=== PATIENT | female | born 1950 | race Caucasian/White ===

== ENCOUNTER 2018-04-22 22:52 | Inpatient (IN) ==
--- NOTE | 2018-04-22 23:09 | Emergency Department Note ---
Disposition Clinical Impression: Dehydration, Hyperammonemia, Hyponatremia, Delirium due to general medical condition Disposition: Admitted As Inpatient Condition: Fair Altered Mental Status HPI - General Chief Complaint: ED Altered Mental Status Stated Complaint: confusion Time Seen by Provider: 04/22/18 22:56 Source: patient Mode of arrival: ambulatory Limitations: no limitations Nursing Notes Reviewed: Yes Vital Signs Reviewed: Yes - History of Present Illness HPI Narrative: Patient has a history of elevated ammonia levels and is not taking her medication as instructed gives her diarrhea symptoms result she is possibly every 3 days insisted a smaller dose daily as result patient had increasing confusion which started over the past week he can have family subsequently noted in the past 24 she has been significantly patient herself family states that the complaints other than when she takes lactulose does diarrhea they are concerned because the she is dehydrated the Push fluids on her but she does not she is had no recent cough cold or flulike symptoms diarrhea melena hematochezia hematemesis numbness tingling is recently weight loss all systems have been reviewed and are otherwise negative MD complaint: altered mental status, confusion Onset (ago): day(s) Timing confirmed by: family member Pain Severity: none Consistency of Symptoms: waxing and waning Context: history of similar presentation, liver disease Associated symptoms: Denies: chest pain, cough, diaphoresis, fever, chills, headaches, loss of appetite, malaise, nausea/vomiting, rash, seizure, shortness of breath, syncope, weakness, foul smelling urine, difficulty walking, diarrhea, incontinence - Related Data Home Medications Medication Instructions Recorded Confirmed Esomeprazole Magnesium [Nexium] 40 mg PO DAILY 09/07/17 04/22/18 Levothyroxine [Synthroid] 50 mcg PO 0630 09/07/17 04/22/18 Metformin HCl [Glucophage] 1,000 mg PO DAILY 09/07/17 04/22/18 Nadolol 20 mg PO DAILY 09/07/17 04/22/18 glipiZIDE [Glipizide ER] 10 mg PO DAILY 09/07/17 04/22/18 Lactulose 20 gm PO DAILY 04/22/18 04/22/18 Allergies Allergy/AdvReac Type Severity Reaction Status Date / Time Penicillins Allergy Hives Verified 09/07/17 19:15 propoxyphene [From Darvon] Allergy Hives Verified 07/17/18 19:15 All systems ED: reviewed and negative except as stated. Review of Systems: As Per HPI Constitutional: Reports: weakness. Denies: fever, chills Eyes: Denies: eye pain, eye discharge ENT ED: Denies: ear pain, throat pain, dental pain Cardiovascular: Denies: chest pain, palpitations, dyspnea on exertion Respiratory: Denies: cough, dyspnea, wheezes Gastrointestinal: Denies: abdominal pain, nausea, vomiting Genitourinary: Denies: urgency, dysuria, frequency Musculoskeletal: Denies: back pain, neck pain, joint swelling Integumentary: Denies: rash, abrasion, lesions Neurological: Reports: confusion. Denies: headache, weakness, numbness Psychiatric: Denies: anxiety, depression, suicidal thoughts Endocrine: Denies: fatigue, heat or cold intolerance Hematological/Lymphatic: Denies: easy bleeding, easy bruising Allergic/Immunologic: Denies: facial swelling, urticaria Past Medical History - Past Medical History Attestation: Yes The following information was validated with the patient. Source: patient, old records reviewed, nursing notes reviewed Medical history: Reports: cirrhosis, diabetes Psychiatric history: Reports: no psych history - Social History Smoking Status: Never smoker Smokeless Tobacco Status: No Alcohol use: Reports: none Drug use: Reports: none Physical Exam - General Limitations: no limitations General appearance: alert, in no apparent distress, other (confused) - Head Head exam: atraumatic, normocephalic, normal inspection - Eye Eye exam: Present: normal appearance, PERRL, EOMI - ENT ENT exam: normal exam, normal oropharynx, mucous membranes moist, TM's normal bilaterally, normal external ear exam - Neck Neck exam: Present: normal inspection, full ROM, trachea midline - Chest Chest inspection: Present: normal inspection, symmetric chest wall rise - Respiratory Respiratory exam: Present: normal lung sounds bilaterally - Cardiovascular Cardiovascular exam: Present: regular rate, normal rhythm, normal heart sounds - Abdominal Exam Abdominal exam: Present: soft, Non-Tender, distention, normal bowel sounds. Absent: mass, pulsatile mass - Extremities Exam Extremities exam: Present: normal inspection, full ROM, normal capillary refill. Absent: tenderness, pedal edema, joint swelling, calf tenderness - Expanded Upper Extremity Exam Shoulder exam: Present: normal inspection, full ROM Arm exam: Present: normal inspection, full ROM Elbow exam: Present: normal inspection, full ROM Forearm/Wrist exam: Present: normal inspection, full ROM Hand exam: Present: normal inspection, full ROM Vascular exam: Normal: capillary refill, radial pulse - Expanded Lower Extremity Exam Hip/Pelvis exam: Present: normal inspection, full ROM Upper leg exam: Present: normal inspection, full ROM Knee exam: Present: normal inspection, full ROM Lower leg exam: Present: normal inspection, full ROM Ankle exam: Present: normal inspection, full ROM Foot/toe exam: Present: normal inspection, full ROM Neurovascular/Tendon exam: Present: normal capillary refill, normal fine/light touch. Absent: motor deficit, sensory deficit, tendon deficit Gait: observed and normal - Back Exam Back exam: Present: normal inspection, full ROM. Absent: muscle spasm - Neurological Exam Neurological exam: Present: alert, oriented X3, CN II-XII intact, normal gait - Psychiatric Psychiatric exam: Present: normal affect, normal mood - Skin Skin exam: Present: warm, dry, intact, normal color Course Course Narrative: Patient seen and examined laboratory data was done spoke with family because the patient had some confusion she needed to be admitted comfortable with the plan patient though did not feel that she was confused that she had trouble answering questions as result she is admitted to [facility] surg Vital Signs Temperature 98.1 F 04/22/18 22:52 Pulse Rate 91 04/22/18 22:52 Respiratory Rate 18 04/22/18 22:52 Blood Pressure 128/77 04/22/18 22:52 O2 Sat by Pulse Oximetry 94 04/22/18 22:52 Temperature 99.4 F 04/23/18 05:20 Pulse Rate 89 04/23/18 03:56 Respiratory Rate 16 04/23/18 03:56 Blood Pressure 116/68 04/23/18 03:56 O2 Sat by Pulse Oximetry 92 04/23/18 03:56 Oxygen Delivery Oxygen Delivery Room Air Altered Mental Status - Differential Diagnosis Likely: altered mental status, delirium, dementia, hyponatremia, subarachnoid hemorrhage, sepsis - Medical Records Medical records reviewed: Yes I reviewed the patient's medical records. - Lab Data Lab results reviewed: Yes I reviewed the patient's lab results. Result diagrams: 04/22/18 23:25 04/22/18 23:25 Lab Results 04/22/18 04/22/18 04/22/18 Range/Units 00:04 23:25 23:25 WBC 5.0 (4.3-11.1) K/mcL RBC 4.01 (3.82-4.97) M/mcL Hgb 10.7 L (11.5-15.4) g/dL Hct 33.4 L (35.3-44.9) % MCV 83.3 (83.0-100.0) fL MCH 26.7 L (28.0-33.3) pg MCHC 32.0 (31.6-35.5) g/dL RDW 18.0 H (11.5-14.5) % Plt Count 97 L (140-400) K/mcL MPV 10.3 (9.4-12.4) fL Immature Gran % 0.4 (0-4) % Seg Neutrophils % 71.6 % Lymphocytes % 8.0 % Monocytes % 17.6 % Eosinophils % 1.6 % Basophils % 0.8 % Neutrophils # 3.6 (1.6-8.9) K/mcL Lymphocytes # 0.4 L (0.6-4.6) K/mcL Monocytes # 0.9 (0.0-1.3) K/mcL Eosinophils # 0.1 (0.0-0.6) K/mcL Basophils # 0.0 (0.0-0.2) K/mcL PT 14.3 H (9.4-12.1) Seconds INR 1.3 APTT 31.8 (26.0-36.0) Seconds Sodium (136-145) mEq/L Potassium (3.5-5.1) mEq/L Chloride (98-107) mEq/L Carbon Dioxide (23-29) mEq/L BUN (8-23) mg/dL Creatinine (0.60-1.20) mg/dL Est GFR ( Amer) (> 60) Est GFR (Non-Af Amer) (> 60) BUN/Creatinine Ratio (6-26) Glucose (70-105) mg/dL Calculated Osmolality (280-300) Calcium (8.6-10.3) mg/dL Total Bilirubin (0.3-1.0) mg/dL AST (13-39) Units/L ALT (7-52) Units/L Alkaline Phosphatase (34-104) Units/L Ammonia (16-53) mcmol/L Troponin I (< 0.04) ng/mL Serum Total Protein (6.4-8.9) g/dL Albumin (3.5-5.7) g/dL Globulin (2.4-3.5) g/dL Albumin/Globulin Ratio (1.1-2.2) TSH (0.340-5.600) mcIU/mL Urine Color Yellow (Yellow) Urine Clarity Clear (Clear) Urine pH 5.5 (5.0-8.0) pH Units Ur Specific [place] >= 1.030 H (1.010-1.025) Urine Protein Trace (Neg-Trace) mg/dL Urine Glucose (UA) Normal (Normal) mg/dL Urine Ketones 40 H (Negative) mg/dL Urine Blood Large H (Negative) Urine Nitrite Negative (Negative) Urine Bilirubin Small H (Negative) Urine Urobilinogen Normal (Normal) mg/dL Ur Leukocyte Esterase Negative (Negative) Urine Microscopic RBC 15-30 H (0-3) per hpf Urine Microscopic WBC 0-3 (0-3) per hpf Ur Squamous Epith Cells Few (None-Few) per lpf Ur Culture Indicated? NO (NO) 04/22/18 04/22/18 Range/Units 23:25 23:25 WBC (4.3-11.1) K/mcL RBC (3.82-4.97) M/mcL Hgb (11.5-15.4) g/dL Hct (35.3-44.9) % MCV (83.0-100.0) fL MCH (28.0-33.3) pg MCHC (31.6-35.5) g/dL RDW (11.5-14.5) % Plt Count (140-400) K/mcL MPV (9.4-12.4) fL Immature Gran % (0-4) % Seg Neutrophils % % Lymphocytes % % Monocytes % % Eosinophils % % Basophils % % Neutrophils # (1.6-8.9) K/mcL Lymphocytes # (0.6-4.6) K/mcL Monocytes # (0.0-1.3) K/mcL Eosinophils # (0.0-0.6) K/mcL Basophils # (0.0-0.2) K/mcL PT (9.4-12.1) Seconds INR APTT (26.0-36.0) Seconds Sodium 128 L (136-145) mEq/L Potassium 4.4 (3.5-5.1) mEq/L Chloride 94 L (98-107) mEq/L Carbon Dioxide 22 L (23-29) mEq/L BUN 10 (8-23) mg/dL Creatinine 0.54 L (0.60-1.20) mg/dL Est GFR ( Amer) > 60 (> 60) Est GFR (Non-Af Amer) > 60 (> 60) BUN/Creatinine Ratio 19 (6-26) Glucose 135 H (70-105) mg/dL Calculated Osmolality 267 L (280-300) Calcium 9.2 (8.6-10.3) mg/dL Total Bilirubin 2.2 H (0.3-1.0) mg/dL AST 67 H (13-39) Units/L ALT 44 (7-52) Units/L Alkaline Phosphatase 74 (34-104) Units/L Ammonia 73 H (16-53) mcmol/L Troponin I < 0.03 (< 0.04) ng/mL Serum Total Protein 7.0 (6.4-8.9) g/dL Albumin 3.3 L (3.5-5.7) g/dL Globulin 3.7 H (2.4-3.5) g/dL Albumin/Globulin Ratio 0.9 L (1.1-2.2) TSH 1.443 (0.340-5.600) mcIU/mL Urine Color (Yellow) Urine Clarity (Clear) Urine pH (5.0-8.0) pH Units Ur Specific [place] (1.010-1.025) Urine Protein (Neg-Trace) mg/dL Urine Glucose (UA) (Normal) mg/dL Urine Ketones (Negative) mg/dL Urine Blood (Negative) Urine Nitrite (Negative) Urine Bilirubin (Negative) Urine Urobilinogen (Normal) mg/dL Ur Leukocyte Esterase (Negative) Urine Microscopic RBC (0-3) per hpf Urine Microscopic WBC (0-3) per hpf Ur Squamous Epith Cells (None-Few) per lpf Ur Culture Indicated? (NO) - Radiology Data Radiology results reviewed: Yes I reviewed the patient's radiology results. ITS Impressions Chest X-Ray 04/22/18 22:57 IMPRESSION: No acute cardiopulmonary findings. Moderate-sized hiatus hernia. Left basilar atelectasis. D/ / Edu Livingston / Edu Livingston Interpreting Provider: Edu Livingston Head CT 04/22/18 22:57 IMPRESSION: No acute intracranial abnormality. Unchanged focal right frontal encephalomalacia. D/ / Edu Livingston / Edu Livingston Interpreting Provider: Edu Livingston - EKG Data EKG attestation: Yes I reviewed and interpreted this EKG. EKG results narrative: Heart rate 85 RI 158 QRS 87 QT 390 to access 6 sinus rhythm TPA Checklist - LKW: 3-4.5 hrs Add. Warnings/Precautions Patient/family understanding: The patient/family members have been counseled and understood the risk, benefit, and alternatives of treatment. Critical Care Time Critical Care Time: Yes Total Critical Care Time: 35 Attestation: Hypomobility clinically significant life-threatening deterioration is patient's condition as result the patient having elevated ammonia dehydration and electrolyte imbalance
[2018-04-22 23:30] LABS: Basophils % 0.8 %; Eosinophils # 0.1 K/mcL (0.0-0.6); Eosinophils % 1.6 %; Hematocrit 33.4 % (35.3-44.9); Hemoglobin 10.7 g/dL (11.5-15.4); Immature Granulocytes % 0.4 % (0-4); Lymphocytes # 0.4 K/mcL (0.6-4.6); Mean Corpuscular Hemoglobin 26.7 pg (28.0-33.3); Mean Corpuscular Volume 83.3 fL (83.0-100.0); Mean Platelet Volume 10.3 fL (9.4-12.4); Monocytes # 0.9 K/mcL (0.0-1.3); Monocytes % 17.6 %; Neutrophils # 3.6 K/mcL (1.6-8.9); Red Blood Count 4.01 M/mcL (3.82-4.97); Segmented Neutrophils % 71.6 %
[2018-04-22 23:32] LABS: Platelet Count 97 K/mcL (140-400)
[2018-04-22 23:39] LABS: INR 1.3; Prothrombin Time 14.3 Seconds (9.4-12.1)
[2018-04-22 23:41] LABS: Activated Partial Thrombo Time 31.8 Seconds (26.0-36.0)
[2018-04-22 23:50] LABS: Troponin I < 0.03 ng/mL (< 0.04)
[2018-04-22 23:51] LABS: Alanine Aminotransferase 44 Units/L (7-52); Albumin 3.3 g/dL (3.5-5.7); Albumin/Globulin Ratio 0.9 (1.1-2.2); Alkaline Phosphatase 74 Units/L (34-104); Aspartate Amino Transferase 67 Units/L (13-39); BUN/Creatinine Ratio 19 (6-26); Bilirubin,Total 2.2 mg/dL (0.3-1.0); Blood Urea Nitrogen 10 mg/dL (8-23); Calcium 9.2 mg/dL (8.6-10.3); Carbon Dioxide 22 mEq/L (23-29); Chloride 94 mEq/L (98-107); Globulin 3.7 g/dL (2.4-3.5); Glucose 135 mg/dL (70-105); Osmolality,Calculated 267 (280-300); Potassium 4.4 mEq/L (3.5-5.1); Sodium 128 mEq/L (136-145); eGFR For Non-African Americans > 60 (> 60)
[2018-04-23 00:02] LABS: Bilirubin,Urine Small (Negative); Blood,Urine Large (Negative); Clarity,Urine Clear (Clear); Color,Urine Yellow (Yellow); Glucose,Urine (UA) Normal (Normal); Ketones,Urine 40 mg/dL (Negative); Leukocyte Esterase,Urine Negative (Negative); Nitrite,Urine Negative (Negative); PH,Urine 5.5 pH Units (5.0-8.0); Protein,Urine Trace mg/dL (Neg-Trace); Specific Gravity,Urine >= 1.030 (1.010-1.025); Urobilinogen,Urine Normal (Normal)
[2018-04-23 00:03] LABS: Thyroid Stimulating Hormone 1.443 mcIU/mL (0.340-5.600)
[2018-04-23 00:07] LABS: RBC,Urine 15-30 per hpf (0-3); Squamous Epithelial Cell,Urine Few per lpf (None-Few); WBC,Urine 0-3 per hpf (0-3)
[2018-04-23] MEDS ORDERED: Lactulose Oral Soln 20 GM/30 ML UDC PO ONE (00:35)
[2018-04-23] MEDS ORDERED: Naloxone 0.4 MG/ML INJ IVP PRN (01:03)
[2018-04-23] MEDS ORDERED: Ondansetron ODT 4 MG TAB.RAPDIS SL PRN (01:03)
[2018-04-23] MEDS ORDERED: Ibuprofen 400 MG TABLET PO PRN (01:47)
[2018-04-23] MEDS: 0.9 % Sodium Chloride 1,000 ML IVC SCH ×2 (02:00→09:00)
[2018-04-23] MEDS: Levothyroxine 25 MCG TABLET PO SCH (05:59)
[2018-04-23 06:27] LABS: Basophils % 0.8 %; Eosinophils % 0.8 %; Hematocrit 31.2 % (35.3-44.9); Hemoglobin 10.1 g/dL (11.5-15.4); Immature Granulocytes % 0.4 % (0-4); Lymphocytes # 0.3 K/mcL (0.6-4.6); Lymphocytes % 6.7 %; Mean Corpuscular HGB Conc 32.4 g/dL (31.6-35.5); Mean Corpuscular Hemoglobin 26.8 pg (28.0-33.3); Mean Corpuscular Volume 82.8 fL (83.0-100.0); Mean Platelet Volume 11.8 fL (9.4-12.4); Monocytes # 0.8 K/mcL (0.0-1.3); Neutrophils # 3.9 K/mcL (1.6-8.9); Red Blood Count 3.77 M/mcL (3.82-4.97); Red Cell Distribution Width 18.1 % (11.5-14.5); Segmented Neutrophils % 76.3 %
[2018-04-23 06:44] LABS: BUN/Creatinine Ratio 20 (6-26); Blood Urea Nitrogen 11 mg/dL (8-23); Calcium 8.8 mg/dL (8.6-10.3); Carbon Dioxide 19 mEq/L (23-29); Chloride 96 mEq/L (98-107); Glucose 176 mg/dL (70-105); Osmolality,Calculated 270 (280-300); Potassium 4.1 mEq/L (3.5-5.1); Sodium 128 mEq/L (136-145); eGFR For Non-African Americans > 60 (> 60)
[2018-04-23 06:59] LABS: Platelet Count 95 K/mcL (140-400)
[2018-04-23] MEDS: *HR* GlipiZIDE XL (24 HR) 10 MG TABLET PO SCH (09:01)
[2018-04-23] MEDS: *HR* Metformin 500 MG TABLET PO SCH ×2 (09:01→21:00)
[2018-04-23] MEDS: Lactulose Oral Soln 20 GM/30 ML UDC PO SCH ×3 (09:01→21:01)
[2018-04-23] MEDS: Acetaminophen 325 MG TABLET PO PRN ×2 (11:18→18:08)
--- NOTE | 2018-04-23 15:15 | Internal Med History&Physical ---
Date of Encounter: 04/23/18 Time of Encounter: 14:35 Assessment and Plan (1) Hepatic encephalopathy Current visit: Yes Status: Acute She will be started on rifaximin. Lactulose will be given as tolerated. (2) Cryptogenic cirrhosis Current visit: Yes Status: Acute Treatment of HE as per above. (3) Microcytic anemia Current visit: Yes Status: Acute Anemia testing will be done in a.m. (4) DM type 2 (diabetes mellitus, type 2) Current visit: Yes Status: Chronic Continue Glucotrol and Glucophage. Check hemoglobin A1c in a.m. 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 (6) Hypothyroidism Current visit: Yes Status: Acute TSH was normal at 1.443 in emergency room. Continue present dose Synthroid. Qualifiers: Hypothyroidism type: unspecified Qualified Code(s): E03.9 - Hypothyroidism, unspecified (7) Hematuria Current visit: Yes Status: Acute Urine culture and sensitivity will be ordered. Qualifiers: Hematuria type: unspecified type Qualified Code(s): R31.9 - Hematuria, unspecified Internal Medicine - H&P: HPI Chief complaint: Cough, confusion Admitted From: Emergency Dept Plans for Post Hospital Care: Home History of present illness: Ms. Bower is a 67 year old female who came to emergency room with history of minimally productive cough over the past 3-4 days with increasing confusion over the past 2 days. There was no vomiting, diarrhea or pain. She was evaluated in emergency room and was found to have elevated ammonia level, microcytic anemia, and microscopic hematuria. She was admitted to [facility] floor for ongoing care needs. Most of the history is supplied the patient's . She was diagnosed with elevated ammonia felt to be due to cirrhosis approximately 2012. No etiology for the cirrhosis has been identified. She follows with a course instructor at [employer] on a regular basis. She had esophageal varices diagnosed 2012 with treatment and is maintained on nadolol. Her most recent EGD was December 2017. She takes lactulose 2-3 doses per week but has resisted increasing the dose due to severe diarrhea. No oral antibiotic agent such as neomycin or rifaximin have been tried. Most recent colonoscopy was approximately 2 years ago. There is no known disorders of her gallbladder or exocrine pancreas. Past Med Surg Social Fam HX - Past Medical History Medical history: cirrhosis, diabetes Psychiatric history: no psych history - Social History Smoking Status: Never smoker Smokeless Tobacco Status: No Alcohol use: none Drug use: none Internal Medicine - H&P: Meds Esomeprazole Magnesium [Nexium] 40 mg PO DAILY 09/07/17 [History] Levothyroxine [Synthroid] 50 mcg PO 0630 09/07/17 [History] Metformin HCl [Glucophage] 1,000 mg PO DAILY 09/07/17 [History] Nadolol 20 mg PO DAILY 09/07/17 [History] glipiZIDE [Glipizide ER] 10 mg PO DAILY 09/07/17 [History] Lactulose 20 gm PO DAILY 04/22/18 [History] Allergy/AdvReac Type Severity Reaction Status Date / Time Penicillins Allergy Hives Verified 09/07/17 19:15 propoxyphene [From Darvon] Allergy Hives Verified 09/07/17 19:15 All Systems PM: A 10-system review of systems was performed and is negative for pertinent findings except as documented above in the HPI. Review of systems: Gen.: Her weight has minimally increased in the past year Cardiovascular: She has no known hypertension heart failure angina DVT or pulmonary embolus. Echocardiogram 05/22/2016 showed LVEF 65% with no significant valvular dysfunction seen. Respiratory: She is a lifelong nonsmoker and has no known chronic lung disease GI: As per history of present illness : No history of hematuria dysuria or kidney stones. She does not have frequent UTIs Neurologic: She has had hepatic encephalopathy with increased lethargy intermittently. She has not had large distribution strokes or seizures Endocrine: She was diagnosed with DM 2 approximately 2005. She has hypothyroidism but denies hyperlipidemia Hematology/oncology: She has had anemia in the past and was told she had low B12 level. She denies internal malignancies or other blood disorders. Psychiatric: She has occasional insomnia and feels depressed at times. She denies anxiety or other mental health diagnoses. [place] skeletal: She has DJD but denies gout or other bone joint or muscle disorders. - Constitutional Vitals: Temp Pulse Resp BP Pulse Ox 100.0 F H 80 16 109/68 93 04/23/18 15:04 04/23/18 15:04 04/23/18 15:04 04/23/18 15:04 04/23/18 15:04 Exam: Gen.: She is a well-developed well-nourished female resting comfortably in bed. She was asleep during initial part of the visit but awakened and answered a few questions appropriately. HEENT: Head is atraumatic and normocephalic. Eyes: EOMI. There is no scleral icterus. Mouth: Mucosa is moist. Neck: Supple and nontender. There is no thyromegaly or adenopathy noted. Heart: Regular without murmurs gallops or ectopics Lungs: No wheezes or crackles are heard. Abdomen: Soft and nontender. No masses or guarding are noted. Extremities: There is no cyanosis edema or clubbing noted. Dorsalis pedis and posterior tibial pulses are trace to 1+ palpable bilaterally. Neurologic: Mental status: She is talkative and a good historian. Cranial nerves: Smile is symmetric. Forehead wrinkles bilaterally. Tongue protrudes midline. EOMI. Motor: There is no pronator drift. Cerebellar: Finger to nose is intact bilaterally. Skin: Warm and dry Internal Med - H&P Results - Labs CBC & Chem 7: 04/23/18 05:41 04/23/18 05:41 Labs: Short CBC 04/22/18 04/23/18 Range/Units 23:25 05:41 WBC 5.0 5.1 (4.3-11.1) K/mcL Hgb 10.7 L 10.1 L (11.5-15.4) g/dL Hct 33.4 L 31.2 L (35.3-44.9) % Plt Count 97 L 95 L (140-400) K/mcL Neutrophils # 3.6 3.9 (1.6-8.9) K/mcL BMP 04/22/18 04/23/18 23:25 05:41 Sodium 128 L 128 L Potassium 4.4 4.1 Chloride 94 L 96 L Carbon Dioxide 22 L 19 L BUN 10 11 Creatinine 0.54 L 0.54 L Glucose 135 H 176 H Calcium 9.2 8.8 Cardiac Enzymes 04/22/18 Range/Units 23:25 Troponin I < 0.03 (< 0.04) ng/mL Liver Function 04/22/18 Range/Units 23:25 Total Bilirubin 2.2 H (0.3-1.0) mg/dL AST 67 H (13-39) Units/L ALT 44 (7-52) Units/L Alkaline Phosphatase 74 (34-104) Units/L Albumin 3.3 L (3.5-5.7) g/dL Urine 04/22/18 Range/Units 00:04 Urine Color Yellow (Yellow) Urine Clarity Clear (Clear) Urine pH 5.5 (5.0-8.0) pH Units Ur Specific [place] >= 1.030 H (1.010-1.025) Urine Protein Trace (Neg-Trace) mg/dL Urine Glucose (UA) Normal (Normal) mg/dL - Impressions ITS Impressions Chest X-Ray 04/22/18 22:57 IMPRESSION: No acute cardiopulmonary findings. Moderate-sized hiatus hernia. Left basilar atelectasis. D/ / Edu Livingston / Edu Livingston Interpreting Provider: Edu Livingston Head CT 04/22/18 22:57 IMPRESSION: No acute intracranial abnormality. Unchanged focal right frontal encephalomalacia. D/ / Edu Livingston / Edu Livingston Interpreting Provider: Edu Livingston
[2018-04-23] MEDS ORDERED: D5% in Water 1,000 ML IVC PRN (16:20)
[2018-04-23] MEDS ORDERED: Dextrose Gel 15 GM/37.5 ML TUBE PO PRN ×2 (16:20)
[2018-04-23] MEDS ORDERED: Dextrose 4 GM Chewable Tablets PO PRN ×2 (16:20)
[2018-04-23] MEDS ORDERED: *HR* Dextrose 50 % in Water (Syg) 50 ML SYRINGE IVP PRN (16:20)
[2018-04-23] MEDS: Insulin LISPRO 300 UNITS/3 ML VIAL SQ SCH ×2 (17:01→21:00)
[2018-04-23] MEDS: cefTRIAXone 1,000 MG in 0.9 % Sodium Chloride Mini Bag 100 ML IVPB SCH (19:51)
[2018-04-23] MEDS: Azithromycin 500 MG in D5% in Water 250 ML IVPB SCH (20:56)
[2018-04-23] MEDS: Ibuprofen 600 MG TABLET PO PRN (21:06)
[2018-04-23 21:36] LABS: Bilirubin,Urine Negative (Negative); Blood,Urine Negative (Negative); Clarity,Urine Clear (Clear); Color,Urine Yellow (Yellow); Glucose,Urine (UA) 500 mg/dL (Normal); Ketones,Urine Trace mg/dL (Negative); Leukocyte Esterase,Urine Negative (Negative); Nitrite,Urine Negative (Negative); Protein,Urine Negative (Neg-Trace); Specific Gravity,Urine 1.025 (1.010-1.025); Urobilinogen,Urine Normal (Normal)
[2018-04-24 06:33] LABS: Alanine Aminotransferase 43 Units/L (7-52); Albumin 2.9 g/dL (3.5-5.7); Albumin/Globulin Ratio 0.8 (1.1-2.2); Alkaline Phosphatase 62 Units/L (34-104); Aspartate Amino Transferase 72 Units/L (13-39); BUN/Creatinine Ratio 15 (6-26); Basophils % 0.4 %; Bilirubin,Direct 0.6 mg/dL (0.0-0.2); Bilirubin,Indirect 1.1 mg/dL (0.0-1.2); Bilirubin,Total 1.7 mg/dL (0.3-1.0); Blood Urea Nitrogen 13 mg/dL (8-23); Calcium 8.6 mg/dL (8.6-10.3); Carbon Dioxide 24 mEq/L (23-29); Chloride 98 mEq/L (98-107); Eosinophils % 0.2 %; Globulin 3.5 g/dL (2.4-3.5); Glucose 141 mg/dL (70-105); Hematocrit 31.2 % (35.3-44.9); Hemoglobin 9.9 g/dL (11.5-15.4); Immature Granulocytes % 0.4 % (0-4); Lymphocytes # 0.4 K/mcL (0.6-4.6); Lymphocytes % 6.9 %; Mean Corpuscular HGB Conc 31.7 g/dL (31.6-35.5); Mean Corpuscular Hemoglobin 26.8 pg (28.0-33.3); Mean Corpuscular Volume 84.3 fL (83.0-100.0); Mean Platelet Volume 11.6 fL (9.4-12.4); Monocytes # 0.5 K/mcL (0.0-1.3); Monocytes % 9.7 %; Neutrophils # 4.4 K/mcL (1.6-8.9); Osmolality,Calculated 272 (280-300); Platelet Count 59 K/mcL (140-400); Potassium 3.9 mEq/L (3.5-5.1); Red Cell Distribution Width 18.6 % (11.5-14.5); Segmented Neutrophils % 82.4 %; Sodium 130 mEq/L (136-145); Total Protein 6.4 g/dL (6.4-8.9); eGFR For Non-African Americans > 60 (> 60)
[2018-04-24 06:52] LABS: Acinetobacter baumannii by PCR Not Detected (Not Detect); Candida albicans by PCR Not Detected (Not Detect); Candida glabrata by PCR Not Detected (Not Detect); Candida krusei by PCR Not Detected (Not Detect); Candida parapsilosis by PCR Not Detected (Not Detect); Candida tropicalis by PCR Not Detected (Not Detect); Enterobacter cloacae Cmplx PCR Not Detected (Not Detect); Enterobacteriaceae by PCR Not Detected (Not Detect); Enterococcus by PCR Not Detected (Not Detect); Escherichia coli by PCR Not Detected (Not Detect); Klebsiella oxytoca by PCR Not Detected (Not Detect); Klebsiella pneumoniae by PCR Not Detected (Not Detect); Proteus by PCR Not Detected (Not Detect); Pseudomonas aeruginosa by PCR Not Detected (Not Detect); Serratia marcescens by PCR Not Detected (Not Detect); Staphylococcus aureus by PCR Not Detected (Not Detect); Staphylococcus by PCR DETECTED (Not Detect); Streptococcus agalactiae(B)PCR Not Detected (Not Detect); Streptococcus by PCR Not Detected (Not Detect); Streptococcus pneumoniae PCR Not Detected (Not Detect); Streptococcus pyogenes (A) PCR Not Detected (Not Detect)
[2018-04-24] MEDS: Levothyroxine 25 MCG TABLET PO SCH (06:56)
[2018-04-24] MEDS: Lactulose Oral Soln 20 GM/30 ML UDC PO SCH ×2 (08:36→21:16)
[2018-04-24] MEDS: Lactobacillus 1 EACH CAP.SPRINK PO SCH (08:42)
[2018-04-24] MEDS: *HR* GlipiZIDE XL (24 HR) 10 MG TABLET PO SCH (08:42)
[2018-04-24] MEDS: Insulin LISPRO 300 UNITS/3 ML VIAL SQ SCH ×4 (08:43→21:17)
[2018-04-24] MEDS: *HR* Metformin 500 MG TABLET PO SCH ×2 (08:44→21:14)
[2018-04-24] MEDS: Acetaminophen 325 MG TABLET PO PRN (08:44)
--- NOTE | 2018-04-24 10:56 | Internal Med Progress Note ---
Date of Encounter: 04/24/18 Time of Encounter: 10:45 - Assessment and plan (1) Hepatic encephalopathy Current Visit: Yes Status: Acute Assessment and plan: April 24. Improved. Continue rifaximin and treatment for bacteremia. (2) Cryptogenic cirrhosis Current Visit: Yes Status: Acute Assessment and plan: April 24. As above (3) Microcytic anemia Current Visit: Yes Status: Acute Assessment and plan: April 24. Anemia testing pending. Stool was heme positive but she has known esophageal and gastric varices. Hemoglobin minimally decreased at 9.9. (4) DM type 2 (diabetes mellitus, type 2) Current Visit: Yes Status: Chronic Assessment and plan: April 24. Hemoglobin A1c pending. Continue Glucotrol and Glucophage and Accu- Cheks with SSI. Qualifiers: Diabetes mellitus half-way insulin use: without dedicated intermodal truck driver use Diabetes mellitus complication status: without complication Qualified Code(s): E11.9 - Type 2 diabetes mellitus without complications (5) Hyponatremia Current Visit: Yes Status: Acute Assessment and plan: April 24. Sodium improved to 130. Continue present Rx. (6) Hypothyroidism Current Visit: Yes Status: Acute Assessment and plan: April 24. TSH normal in the ER at 1.443. Continue present dose Synthroid. Qualifiers: Hypothyroidism type: unspecified Qualified Code(s): E03.9 - Hypothyroidism, unspecified (7) Hematuria Current Visit: Yes Status: Acute Assessment and plan: April 24. Repeat UA yesterday showed no hematuria. Continue to monitor. Qualifiers: Hematuria type: unspecified type Qualified Code(s): R31.9 - Hematuria, unsp ecified (8) Staphylococcus aureus bacteremia Current Visit: Yes Status: Acute Assessment and plan: April 24. A blood culture in ER shows MSSA on preliminary report. She has been started on Rocephin and Zithromax. These will be continued with final culture report pending. - Subjective Interval history: April 24. She has no new complaints and feels better. She specifically denies pain or dyspnea. - Constitutional Vitals: Temp Pulse Resp BP Pulse Ox 98.9 F 80 16 102/68 93 04/24/18 10:06 04/24/18 10:06 04/24/18 10:06 04/24/18 10:06 04/24/18 10:06 Exam: She is resting comfortably in bed and appears in no acute distress. She is more awake and alert than yesterday. I reviewed her medications and lab results. Internal Medicine: Result - Labs CBC & Chem 7: 04/24/18 05:58 04/24/18 05:58 Labs: Short CBC 04/24/18 Range/Units 05:58 WBC 5.3 (4.3-11.1) K/mcL Hgb 9.9 L (11.5-15.4) g/dL Hct 31.2 L (35.3-44.9) % Plt Count 59 L (140-400) K/mcL Neutrophils # 4.4 (1.6-8.9) K/mcL BMP 04/24/18 05:58 Sodium 130 L Potassium 3.9 Chloride 98 Carbon Dioxide 24 BUN 13 Creatinine 0.84 Glucose 141 H Calcium 8.6 Liver Function 04/24/18 Range/Units 05:58 Total Bilirubin 1.7 H (0.3-1.0) mg/dL Direct Bilirubin 0.6 H (0.0-0.2) mg/dL AST 72 H (13-39) Units/L ALT 43 (7-52) Units/L Alkaline Phosphatase 62 (34-104) Units/L Albumin 2.9 L (3.5-5.7) g/dL Urine 04/23/18 Range/Units 19:00 Urine Color Yellow (Yellow) Urine Clarity Clear (Clear) Urine pH 5.0 (5.0-8.0) pH Units Ur Specific [place] 1.025 (1.010-1.025) Urine Protein Negative (Neg-Trace) mg/dL Urine Glucose (UA) 500 H (Normal) mg/dL - ABG Interpretation ABG results: PT/INR, D-dimer PT 14.3 Seconds (9.4-12.1) H 04/22/18 23:25 - Impressions Impressions Chest CT 04/23/18 18:46 IMPRESSION: Moderate respiratory motion degradation. No definite acute abnormality detected within the chest. Possible mild bronchial wall thickening which raise the possibility of acute and/or chronic bronchitis versus reactive airways disease. Cirrhotic morphology liver, with evidence of portal hypertension, with gastric and gastroesophageal varices. Moderate-sized hiatal hernia. D/ / Leax Ramirez MD / Lexa Ramirez MD Interpreting Provider: Lexa Ramirez MD Consult Discharge Plan - Plan Referrals: Gregorio Reid MD [Primary Care Provider] - 1 week
[2018-04-24 11:30] LABS: % Iron Saturation 3 % (15-50); Iron 14 mcg/dL (50-170); Transferrin 328 mg/dL (203-362)
[2018-04-24 11:49] LABS: Ferritin 38 ng/mL (10-120)
[2018-04-24 11:53] LABS: Folate 12.5 ng/mL (3.0-16.0)
[2018-04-24 14:21] LABS: Estimated Average Glucose 186 mg/dl; Hemoglobin A1C 8.1 %
[2018-04-24] MEDS: cefTRIAXone 1,000 MG in 0.9 % Sodium Chloride Mini Bag 100 ML IVPB SCH (18:24)
[2018-04-24] MEDS: Azithromycin 500 MG in D5% in Water 250 ML IVPB SCH (19:04)
[2018-04-25] MEDS: Levothyroxine 25 MCG TABLET PO SCH (06:06)
[2018-04-25] MEDS: Insulin LISPRO 300 UNITS/3 ML VIAL SQ SCH ×4 (08:46→21:55)
[2018-04-25] MEDS: *HR* Metformin 500 MG TABLET PO SCH ×2 (08:47→21:53)
[2018-04-25] MEDS: *HR* GlipiZIDE XL (24 HR) 10 MG TABLET PO SCH (08:47)
[2018-04-25] MEDS: Lactulose Oral Soln 20 GM/30 ML UDC PO SCH ×2 (08:47→21:55)
[2018-04-25] MEDS: Lactobacillus 1 EACH CAP.SPRINK PO SCH (08:47)
[2018-04-25] MEDS ORDERED: Cyanocobalamin (B-12) 1,000 MCG/ML VIAL IM ONE (10:18)
--- NOTE | 2018-04-25 10:22 | Internal Med Progress Note ---
Date of Encounter: 04/25/18 Time of Encounter: 10:15 - Assessment and plan (1) Hepatic encephalopathy Current Visit: Yes Status: Acute Assessment and plan: April 24. Improved. Continue rifaximin and treatment for bacteremia. (2) Cryptogenic cirrhosis Current Visit: Yes Status: Acute Assessment and plan: April 24. As above (3) Microcytic anemia Current Visit: Yes Status: Acute Assessment and plan: April 24. Anemia testing pending. Stool was heme positive but she has known esophageal and gastric varices. Hemoglobin minimally decreased at 9.9. April 25. Anemia testing showed iron 14, transferrin saturation 3%, transferrin 328, ferritin 38, B12 133, and folate 12.5. She will receive iron dextran infusion and a B12 injection. (4) DM type 2 (diabetes mellitus, type 2) Current Visit: Yes Status: Chronic Assessment and plan: April 24. Hemoglobin A1c pending. Continue Glucotrol and Glucophage and Accu- Cheks with SSI. April 25. Hemoglobin A1c 8.1%. Continue Glucotrol and Glucophage and Accu-Cheks with SSI. Qualifiers: Diabetes mellitus intermediate card tender insulin use: without intermediate card tender use Diabetes mellitus complication status: without complication Qualified Code(s): E11.9 - Type 2 diabetes mellitus without complications (5) Hyponatremia Current Visit: Yes Status: Acute Assessment and plan: April 24. Sodium improved to 130. Continue present Rx. April 25. Recheck labs in a.m. (6) Hypothyroidism Current Visit: Yes Status: Acute Assessment and plan: April 24. TSH normal in the ER at 1.443. Continue present dose Synthroid. Qualifiers: Hypothyroidism type: unspecified Qualified Code(s): E03.9 - Hypothyroidism, unspecified (7) Hematuria Current Visit: Yes Status: Acute Assessment and plan: April 24. Repeat UA yesterday showed no hematuria. Continue to monitor. Qualifiers: Hematuria type: unspecified type Qualified Code(s): R31.9 - Hematuria, unspecified (8) Staphylococcus aureus bacteremia Current Visit: Yes Status: Acute Assessment and plan: April 24. A blood culture in ER shows MSSA on preliminary report. She has been started on Rocephin and Zithromax. These will be continued with final culture report pending. April 25. Final blood culture report sensitivity pending. Change antibiotic to IV Ancef. Continue lactobacillus. Anticipate discharge home tomorrow if stable. - Subjective Interval history: April 24. She has no new complaints and feels better. She specifically denies p ain or dyspnea. April 25. She has no new complaints. - Constitutional Vitals: Temp Pulse Resp BP Pulse Ox 99.1 F 100 16 115/65 96 04/25/18 10:12 04/25/18 10:12 04/25/18 10:12 04/25/18 10:12 04/25/18 10:12 Exam: She is resting comfortably in bed and appears in no acute distress. Her affect is cheerful. She is appropriate in conversation. I reviewed her medications and lab results. Internal Medicine: Result - Labs CBC & Chem 7: 04/24/18 05:58 04/24/18 05:58 - ABG Interpretation ABG results: PT/INR, D-dimer PT 14.3 Seconds (9.4-12.1) H 04/22/18 23:25 Consult Discharge Plan - Plan Referrals: Gregorio Reid MD [Primary Care Provider] - 1 week
[2018-04-25] MEDS ORDERED: SODIUM CHLORIDE 0.9% IVPB ONE (13:00)
[2018-04-25] MEDS ORDERED: IRON DEXTRAN COMPLEX IVPB ONE (13:00)
[2018-04-25] MEDS: ceFAZolin 1,000 MG in Water for inj. (sterile) 20 ML 10 ML IVP SCH (18:29)
[2018-04-26] MEDS: ceFAZolin 1,000 MG in Water for inj. (sterile) 20 ML 10 ML IVP SCH ×3 (02:57→16:17)
[2018-04-26] MEDS: Levothyroxine 25 MCG TABLET PO SCH (06:00)
[2018-04-26 06:22] LABS: Basophils % 0.3 %; Eosinophils # 0.1 K/mcL (0.0-0.6); Eosinophils % 3.8 %; Hematocrit 29.5 % (35.3-44.9); Hemoglobin 9.5 g/dL (11.5-15.4); Immature Granulocytes % 0.3 % (0-4); Lymphocytes # 0.5 K/mcL (0.6-4.6); Lymphocytes % 15.8 %; Mean Corpuscular HGB Conc 32.2 g/dL (31.6-35.5); Mean Corpuscular Hemoglobin 27.1 pg (28.0-33.3); Mean Platelet Volume 10.8 fL (9.4-12.4); Monocytes # 0.4 K/mcL (0.0-1.3); Monocytes % 14.8 %; Neutrophils # 1.9 K/mcL (1.6-8.9); Red Blood Count 3.51 M/mcL (3.82-4.97); Red Cell Distribution Width 18.7 % (11.5-14.5)
[2018-04-26 06:44] LABS: Platelet Count 61 K/mcL (140-400)
[2018-04-26 06:59] LABS: Alanine Aminotransferase 32 Units/L (7-52); Albumin 2.7 g/dL (3.5-5.7); Albumin/Globulin Ratio 0.8 (1.1-2.2); Alkaline Phosphatase 72 Units/L (34-104); Aspartate Amino Transferase 51 Units/L (13-39); BUN/Creatinine Ratio 24 (6-26); Bilirubin,Total 0.9 mg/dL (0.3-1.0); Blood Urea Nitrogen 10 mg/dL (8-23); Calcium 8.7 mg/dL (8.6-10.3); Carbon Dioxide 23 mEq/L (23-29); Chloride 100 mEq/L (98-107); Globulin 3.2 g/dL (2.4-3.5); Glucose 91 mg/dL (70-105); Osmolality,Calculated 277 (280-300); Potassium 3.8 mEq/L (3.5-5.1); Sodium 134 mEq/L (136-145); Total Protein 5.9 g/dL (6.4-8.9); eGFR For Non-African Americans > 60 (> 60)
[2018-04-26] MEDS: Lactulose Oral Soln 20 GM/30 ML UDC PO SCH ×2 (07:39→19:39)
[2018-04-26] MEDS: *HR* Metformin 500 MG TABLET PO SCH ×2 (07:40→16:15)
[2018-04-26] MEDS: Lactobacillus 1 EACH CAP.SPRINK PO SCH (07:40)
[2018-04-26] MEDS: *HR* GlipiZIDE XL (24 HR) 10 MG TABLET PO SCH (07:41)
[2018-04-26] MEDS: Insulin LISPRO 300 UNITS/3 ML VIAL SQ SCH ×4 (09:35→19:39)
--- NOTE | 2018-04-26 11:27 | Internal Med Progress Note ---
Date of Encounter: 04/26/18 Time of Encounter: 11:20 - Assessment and plan (1) Hepatic encephalopathy Current Visit: Yes Status: Acute Assessment and plan: April 24. Improved. Continue rifaximin and treatment for bacteremia. (2) Cryptogenic cirrhosis Current Visit: Yes Status: Acute Assessment and plan: April 24. As above (3) Microcytic anemia Current Visit: Yes Status: Acute Assessment and plan: April 24. Anemia testing pending. Stool was heme positive but she has known esophageal and gastric varices. Hemoglobin minimally decreased at 9.9. April 25. Anemia testing showed iron 14, transferrin saturation 3%, transferrin 328, ferritin 38, B12 133, and folate 12.5. She will receive iron dextran infusion and a B12 injection. April 26. Hemoglobin 9.5 today. Continue to monitor. (4) DM type 2 (diabetes mellitus, type 2) Current Visit: Yes Status: Chronic Assessment and plan: April 24. Hemoglobin A1c pending. Continue Glucotrol and Glucophage and Accu- Cheks with SSI. April 25. Hemoglobin A1c 8.1%. Continue Glucotrol and Glucophage and Accu-Cheks with SSI. Qualifiers: Diabetes mellitus moth exterminator insulin use: without custodial use Diabetes mellitus complication status: without complication Qualified Code(s): E11.9 - Type 2 diabetes mellitus without complications (5) Hyponatremia Current Visit: Yes Status: Acute Assessment and plan: April 24. Sodium improved to 130. Continue present Rx. April 25. Recheck labs in a.m. April 26. Sodium improved to 134. Continue present Rx. (6) Hypothyroidism Current Visit: Yes Status: Acute Assessment and plan: April 24. TSH normal in the ER at 1.443. Continue present dose Synthroid. Qualifiers: Hypothyroidism type: unspecified Qualified Code(s): E03.9 - Hypothyroidism, unspecified (7) Hematuria Current Visit: Yes Status: Acute Assessment and plan: April 24. Repeat UA yesterday showed no hematuria. Continue to monitor. Qualifiers: Hematuria type: unspecified type Qualified Code(s): R31.9 - Hematuria, unspecified (8) Bacteremia due to Staphylococcus Current Visit: Yes Status: Acute Assessment and plan: April 26. Final blood culture report shows Staphylococcus capitis. Ancef will be discontinued and she will be started on oral doxycycline. Lactobacillus will be continued. Anticipate discharge tomorrow if stable. (9) Weakness Current Visit: Yes Status: Acute Assessment and plan: April 26. PT and OT evaluations have been done. - Subjective Interval history: April 24. She has no new complaints and feels better. She specifically denies pain or dyspnea. April 25. She has no new complaints. April 26. She has no new complaints. - Constitutional Vitals: Temp Pulse Resp BP Pulse Ox 98.5 F 92 16 111/70 92 04/26/18 06:39 04/26/18 06:39 04/26/18 06:39 04/26/18 06:39 04/26/18 06:39 Exam: She is resting comfortably in bed and appears in no acute distress. Her affect is bright and cheerful. I reviewed her medications and lab results. Internal Medicine: Result - Labs CBC & Chem 7: 04/26/18 05:40 04/26/18 05:40 Labs: Short CBC 04/26/18 Range/Units 05:40 WBC 2.9 L (4.3-11.1) K/mcL Hgb 9.5 L (11.5-15.4) g/dL Hct 29.5 L (35.3-44.9) % Plt Count 61 L (140-400) K/mcL Neutrophils # 1.9 (1.6-8.9) K/mcL BMP 04/26/18 05:40 Sodium 134 L Potassium 3.8 Chloride 100 Carbon Dioxide 23 BUN 10 Creatinine 0.41 L Glucose 91 Calcium 8.7 Liver Function 04/26/18 Range/Units 05:40 Total Bilirubin 0.9 (0.3-1.0) mg/dL AST 51 H (13-39) Units/L ALT 32 (7-52) Units/L Alkaline Phosphatase 72 (34-104) Units/L Albumin 2.7 L (3.5-5.7) g/dL - ABG Interpretation ABG results: PT/INR, D-dimer PT 14.3 Seconds (9.4-12.1) H 04/22/18 23:25 Consult Discharge Plan - Plan Referrals: Gregorio Reid MD [Primary Care Provider] - 1 week
[2018-04-26] MEDS: Ibuprofen 600 MG TABLET PO PRN (19:39)
[2018-04-27] MEDS: ceFAZolin 1,000 MG in Water for inj. (sterile) 20 ML 10 ML IVP SCH ×2 (01:01→08:48)
[2018-04-27] MEDS: Levothyroxine 25 MCG TABLET PO SCH (05:54)
[2018-04-27 07:22] VITALS: BP 106/62
[2018-04-27] MEDS ORDERED: *HR* GlipiZIDE XL (24 HR) 10 MG TABLET PO SCH (08:00)
[2018-04-27] MEDS: *HR* Metformin 500 MG TABLET PO SCH (08:49)
[2018-04-27] MEDS: Insulin LISPRO 300 UNITS/3 ML VIAL SQ SCH (08:49)
[2018-04-27] MEDS: Lactobacillus 1 EACH CAP.SPRINK PO SCH (08:49)
[2018-04-27] MEDS: Lactulose Oral Soln 20 GM/30 ML UDC PO SCH (08:50)
--- NOTE | 2018-04-27 10:02 | Discharge Summary ---
Orders not resulted at time of discharge: Pending orders 04/22/18 23:25 Culture,Blood [BC] Stat 04/23/18 19:47 Culture,Blood [BC] Stat Date of Encounter: 04/27/18 Time of Encounter: 09:53 - Discharge Diagnosis (1) Hepatic encephalopathy Priority: Primary Status: Acute (2) Cryptogenic cirrhosis Priority: Secondary Status: Acute (3) Bacteremia due to Staphylococcus Priority: Secondary Status: Acute (4) Microcytic anemia Priority: Secondary Status: Acute (5) DM type 2 (diabetes mellitus, type 2) Priority: Secondary Status: Chronic Qualifiers: Diabetes mellitus documentation lead insulin use: without documentation lead use Diabetes mellitus complication status: without complication Qualified Code(s): E11.9 - Type 2 diabetes mellitus without complications (6) Hyponatremia Priority: Secondary Status: Acute (7) Hypothyroidism Priority: Secondary Status: Chronic Qualifiers: Hypothyroidism type: unspecified Qualified Code(s): E03.9 - Hypothyroidism, unspecified (8) Hematuria Priority: Secondary Status: Resolved Qualifiers: Hematuria type: unspecified type Qualified Code(s): R31.9 - Hematuria, unspecified (9) Weakness Priority: Secondary Status: Acute Hospital course: Ms. Bower is a 67 year old female who came to emergency room with history of minimally productive cough over the past 3-4 days with increasing confusion over the past 2 days. There was no vomiting, diarrhea or pain. She was evaluated in emergency room and was found to have elevated ammonia level, microcytic anemia, and microscopic hematuria. She was admitted to [facility] for ongoing care needs. Initial orders were written by the emergency room physician. I saw her on April 23 and performed a history and physical. She was started on rifaximin. Lactulose was given as tolerated. She had gradual improvement in her mental status and returned to what I perceived was baseline by day of discharge. Ammonia level decreased from 73 on admission to 63 on day prior to discharge. She will continue with rifaximin and lactulose at discharge. Anemia testing showed iron 14, transferrin saturation 3%, transferrin 3 and 28, ferritin 38, B12 133, and folate 12.5. She was given a B12 injection will continue with oral B12 supplement at discharge. She was given iron dextran infusion. Her PCP can monitor labs. TSH returned normal at 1.443. Sodium level mya to 134 by day prior to discharge. Physical therapy and occupational therapy evaluations were done with ongoing intervention. It was recommended she have a wheeled walker at discharge to assist in ambulation. On April 27 she was stable for discharge home. She will follow with her PCP Dr. Gregorio Reid within 1 week. Home health services will be ordered. - Time Spent with Patient Total time spent providing and/or coordinating discharge services: - Discharge Medications Prescriptions: New Cyanocobalamin (B-12) [Vitamin B12] 1,000 mcg PO DAILY #30 tablet Doxycycline 100 mg PO BID #14 capsule Lactobacillus [Culturelle] 1 each PO DAILY #14 cap.sprink Rifaximin [Xifaxan] 550 mg PO BID #60 tablet Continue Levothyroxine [Synthroid] 50 mcg PO 0630 Nadolol 20 mg PO DAILY Metformin HCl [Glucophage] 1,000 mg PO DAILY glipiZIDE [Glipizide ER] 10 mg PO DAILY Esomeprazole Magnesium [Nexium] 40 mg PO DAILY Lactulose 20 gm PO DAILY Home Medications: Esomeprazole Magnesium [Nexium] 40 mg PO DAILY 09/07/17 [History] Levothyroxine [Synthroid] 50 mcg PO 0630 09/07/17 [History] Metformin HCl [Glucophage] 1,000 mg PO DAILY 09/07/17 [History] Nadolol 20 mg PO DAILY 09/07/17 [History] glipiZIDE [Glipizide ER] 10 mg PO DAILY 09/07/17 [History] Lactulose 20 gm PO DAILY 04/22/18 [History] Cyanocobalamin (B-12) [Vitamin B12] 1,000 mcg PO DAILY #30 tablet 04/27/18 [Rx] Doxycycline 100 mg PO BID #14 capsule 04/27/18 [Rx] Lactobacillus [Culturelle] 1 each PO DAILY #14 cap.sprink 04/27/18 [Rx] Rifaximin [Xifaxan] 550 mg PO BID #60 tablet 04/27/18 [Rx] Allergies/Adverse Reactions: Allergy/AdvReac Type Severity Reaction Status Date / Time Penicillins Allergy Hives Verified 09/07/17 19:15 propoxyphene [From Darvon] Allergy Hives Verified 09/07/17 19:15 Date of admission: 04/24/18 18:06 Primary care physician: Gregorio Reid MD Consults: 04/25/18 15:34 Consult to Occupational Therapy [CONS] Routine Comment: Evaluate, develop and implement POC Reason for Consult: Evaluate, develop and implement POC Does patient have active BEDREST order?: No Is patient medically & hemodynamically stable?: Yes Patient assessed for mobility or mobilized this visit?: Yes Consult to Physical Therapy [CONS] Routine Comment: Evaluate, develop and implement POC Reason for Consult: Evaluate, develop and implement POC Does patient have active BEDREST order?: No Is patient medically & hemodynamically stable?: Yes Patient assessed for mobility or mobilized this visit?: Yes - Constitutional Vitals: Temp Pulse Resp BP Pulse Ox 98.4 F 82 16 106/62 91 04/27/18 07:17 04/27/18 07:17 04/27/18 07:17 04/27/18 07:17 04/27/18 07:17 - Patient Status Disposition: Home Health Service Condition: Fair - Discharge Instructions Follow Up With: Gregorio Reid MD [Primary Care Provider] - 1 week - Diet and Activity Activity: as per physical therapy, resume usual activities as tolerated Diet: advance to your usual diet
--- NOTE | 2018-04-27 10:11 | Physician Discharge Referral ---
Home Health/Hosp Referral Info Transfer to: Home Health Attending Provider: Adria Provider in Charge Post Discharge: PCP (Gregorio Reid M.D.) - Diagnosis (1) Hepatic encephalopathy Priority: Primary Status: Acute (2) Cryptogenic cirrhosis Priority: Secondary Status: Acute (3) Bacteremia due to Staphylococcus Priority: Secondary Status: Acute (4) Microcytic anemia Priority: Secondary Status: Acute (5) DM type 2 (diabetes mellitus, type 2) Priority: Secondary Status: Chronic (6) Hyponatremia Priority: Secondary Status: Acute (7) Hypothyroidism Priority: Secondary Status: Chronic (8) Hematuria Priority: Secondary Status: Resolved (9) Weakness Priority: Secondary Status: Acute - Respiratory Orders Smoking Cessation: Smoking cessation has been advised. For more information, call the [employer] Tobacco Quit Line at 3-211-KVRH-NOW. - Diet/Nutrition Diet/Nutrition Orders: Cardiac - Activity Activity Orders: Walker - Services Needed Following services are medically necessary services: Nursing, Home Health Aide, Physical Therapy, Occupational Therapy - Transfer Medications Prescriptions: Cyanocobalamin (B-12) [Vitamin B12] 1,000 mcg PO DAILY #30 tablet Doxycycline 100 mg PO BID #14 capsule Lactobacillus [Culturelle] 1 each PO DAILY #14 cap.sprink Rifaximin [Xifaxan] 550 mg PO BID #60 tablet Home Medications: Esomeprazole Magnesium [Nexium] 40 mg PO DAILY 09/07/17 [History] Levothyroxine [Synthroid] 50 mcg PO 30 09/07/17 [History] Metformin HCl [Glucophage] 1,000 mg PO DAILY 09/07/17 [History] Nadolol 20 mg PO DAILY 09/07/17 [History] glipiZIDE [Glipizide ER] 10 mg PO DAILY 09/07/17 [History] Lactulose 20 gm PO DAILY 04/22/18 [History] Cyanocobalamin (B-12) [Vitamin B12] 1,000 mcg PO DAILY #30 tablet 04/27/18 [Rx] Doxycycline 100 mg PO BID #14 capsule 04/27/18 [Rx] Lactobacillus [Culturelle] 1 each PO DAILY #14 cap.sprink 04/27/18 [Rx] Rifaximin [Xifaxan] 550 mg PO BID #60 tablet 04/27/18 [Rx] Allergies/Adverse Reactions: Allergy/AdvReac Type Severity Reaction Status Date / Time Penicillins Allergy Hives Verified 09/07/17 19:15 propoxyphene [From Darvon] Allergy Hives Verified 09/07/17 19:15 Certification: Further, I certify that my clinical findings support that this patient is homebound (i.e. absences from home require considerable and taxing effort and are for medical reasons or christianity services or infrequently or short duration when for other reasons) because: Homebound Reason: Leaving home requires considerable and taxing effort due to condition (Impaired ambulation, hepatic encephalopathy) Attestation: My signature below is to certify that this patient is under my care and that I, or nurse practitioner, or a physician's assistant site manager working with me, has a [id number] encounter with this patient.
--- NOTE | 2018-04-28 20:33 | Electrocardiograph Report ---
[place] [id number] Test Date: 2018-04-22 Pat Name: Indu Bower Department: EDP-14 Room: [facility] Gender: F Agent Broker: : 1950 Requested By: Tayler Desir Order Number: [id number] Reading MD: John Reddy Measurements Intervals [place] Rate: 85 P: 12 OK: 158 QRS: 6 QRSD: 87 T: 30 QT: 392 QTc: 467 Interpretive Statements Sinus rhythm Electronically Signed On 04-28-2018 20:31:29 EST by John Reddy
== END 2018-04-27 12:40 | disposition home health service (06) | DRG 442 ==
LOC: EMEROOPIK 22:52 → INPPIK 22:52
PROVIDERS: ADMIT Internal Medicine; ATTEND Internal Medicine